=== PATIENT | male | born 1965 | race African-American/Black ===

== ENCOUNTER → 2018-01-19 | Outpatient (CLI) | payer OTHER ==
[2018-01-19 12:06] LABS: BASO % 0.3 %; BASO ABS # 0.02 K/uL (0-0.2); EOS % 0.8 %; EOS ABS # 0.05 K/uL (0-0.5); HEMATOCRIT 40.5 % (42-52); HEMOGLOBIN 12.8 g/dL (14.0-18.0); IG# 0.02 K/uL (0.00-0.02); LYMPH % 47.7 %; LYMPH ABS # 2.96 K/uL (1.2-3.4); MEAN CELL VOLUME 74.9 fL (80-100); MEAN CORPUSCULAR HEMOGLOBIN 23.7 pg (25-34); MEAN CORPUSCULAR HGB CONC 31.6 g/dl (32-36); MEAN PLATELET VOLUME 10.2 fL (7.4-10.4); MONO % 5.3 %; MONO ABS # 0.33 K/uL (0.11-0.59); NEUT % 45.6 %; NEUT ABS # 2.82 K/uL (1.4-6.5); PLATELET COUNT 234 K/uL (130-400); RED CELL DISTRIBUTION WIDTH CV 14.5 % (11.5-14.5); RED CELL DISTRIBUTION WIDTH SD 39.1 fL (36.4-46.3)
[2018-01-19 12:19] LABS: HEMOGLOBIN A1C 4.9 % (4.5-5.6)
[2018-01-19 13:42] LABS: ALBUMIN 4.5 gm/dl (3.4-5.0); BLOOD UREA NITROGEN 15 mg/dl (7-18); CALCIUM 10.1 mg/dl (8.5-10.1); CARBON DIOXIDE 27 mmol/L (21-32); CREATININE 1.24 mg/dl (0.60-1.40); GLUCOSE 77 mg/dl (70-99); POTASSIUM 4.5 mmol/L (3.5-5.1); SODIUM 135 mmol/L (136-145)
[2018-01-19 13:51] LABS: ALKALINE PHOSPHATASE 73 U/L (45-117); ALT/SGPT 31 U/L (12-78); AST/SGOT 21 U/L (15-37); CHOLESTEROL 213 mg/dl (0-200); LDL CHOLESTEROL CALCULATED 115 mg/dl; TOTAL PROTEIN 9.1 gm/dl (6.4-8.2)
== END | disposition home or self-care (01) ==
LOC: C.LAB 11:18
PROVIDERS: ATTEND Physician Assistant
DX: Z79.899 Other long term (current) drug therapy (principal)

== ENCOUNTER → 2018-02-05 | Outpatient (CLI) | payer OTHER | END | disposition home or self-care (01) | LOC: C.LAB 10:23 | PROVIDERS: ATTEND Physician Assistant | DX: Z79.899 Other long term (current) drug therapy (principal) ==